=== PATIENT | male | born 1975 | race Caucasian/White ===

== ENCOUNTER 2021-02-11 23:04 | Emergency (ER) | payer OTHER ==
[2021-02-11] MEDS ORDERED: Ketorolac 30 MG/ML SDV ONE (23:35)
[2021-02-11] MEDS ORDERED: Ketorolac 30 MG/ML SDV IVPUSH ONE (23:38)
[2021-02-11] MEDS ORDERED: Sodium Chloride 0.9% 1,000 ML IV ONE (23:38)
[2021-02-11] MEDS ORDERED: Sodium Chloride 0.9% 10 ML Syringe FLUSH PRN (23:39)
[2021-02-11] MEDS ORDERED: HYDROmorphone 1 MG/ML Syringe IVPUSH ONE (23:49)
[2021-02-11 23:52] LABS: CHLORIDE,CL 109 mmol/L (98-107); SODIUM,NA 144 mmol/L (136-145)
--- NOTE | 2021-02-11 23:59 | EDM.PDOC ---
ED HPI GENERAL MEDICAL PROBLEM - General Chief Complaint: Abdominal Pain Stated Complaint: abdominal pain Time Seen by Provider: 02/11/21 23:30 Source of Information: Reports: Patient History Limitations: Reports: No Limitations - History of Present Illness INITIAL COMMENTS - FREE TEXT/NARRATIVE: Patient [facility] with ongoing intermittent left flank/abdominal pain. States pain has been intermittent for the last month that started in the left flank and is radiated around the left lower abdomen. He rates tonight's pain is about a 8 out of 10 states it is occasionally radiated into the groin. States it woke him up from sleep andrew and then he came to the ER. He states he has had kidney stones in the past last one was about 15 years ago and he had one episode where he had to have lithotripsy and another where he had to have stenting after having the stone broke up. He denies any nausea vomiting fever issues. He has no other complaints at this time Duration: Week(s): Quality: Reports: Burning, Stabbing, Throbbing Severity: Severe Improves with: Reports: Other (Time) Worsens with: Reports: None LLQ Pain Score (Numeric/FACES): 7 - Related Data Allergies Allergy/AdvReac Type Severity Reaction Status Date / Time No Known Allergies Allergy Verified 02/11/21 23:10 Home Meds: Home Meds Fenofibrate Nanocrystallized [Fenofibrate] 145 mg PO DAILY 02/12/21 [History] Omeprazole 20 mg PO DAILY 02/12/21 [History] Sertraline [Zoloft] 50 mg PO DAILY 02/12/21 [History] Social & Family History - Tobacco Use Tobacco Use Status *Q: Current Every Day Tobacco User Years of Tobacco use: 20 Packs/Tins Daily: 1 Second Hand Smoke Exposure: No - Caffeine Use Caffeine Use: Reports: Soda - Recreational Drug Use Recreational Drug Use: No ED ROS GENERAL - Review of Systems Review Of Systems: See Below Constitutional: Denies: Fever, Chills, Malaise, Weakness, Fatigue, Decreased Appetite HEENT: Reports: No Symptoms Respiratory: Reports: No Symptoms Cardiovascular: Reports: No Symptoms Endocrine: Reports: No Symptoms GI/Abdominal: Reports: Abdominal Pain. Denies: Nausea, Vomiting : Reports: Flank Pain. Denies: Discharge, Dysuria, Frequency, Urgency, Urinary Retention Musculoskeletal: Reports: No Symptoms, Back Pain Skin: Reports: No Symptoms Neurological: Reports: No Symptoms Psychiatric: Reports: No Symptoms Hematologic/Lymphatic: Reports: No Symptoms Immunologic: Reports: No Symptoms ED EXAM, RENAL/ - Physical Exam Exam: See Below Exam Limited By: No Limitations General Appearance: Alert, WD/WN, No Apparent Distress, Other (Patient appears to be in discomfort. Noted hypertension on vital signs) Eye Exam: Bilateral Eye: EOMI, Normal Inspection Throat/Mouth: Normal Inspection, Normal Lips, Normal Teeth, Normal Gums, Normal Oropharynx, Normal Voice, No Airway Compromise Neck: Normal Inspection, Supple, Non-Tender, Full Range of Motion Respiratory/Chest: No Respiratory Distress, Lungs Clear, Normal Breath Sounds, No Accessory Muscle Use, Chest Non-Tender Cardiovascular: Normal Peripheral Pulses, Regular Rate, Rhythm, No Edema, No Gallop, No JVD, No Murmur, No Rub GI/Abdominal: Normal Bowel Sounds, Soft, Non-Tender, No Organomegaly, No Distention, No Abnormal Bruit, No Mass Back Exam: Normal Inspection, Full Range of Motion. No: CVA Tenderness (L), CVA Tenderness (R) Extremities: Normal Inspection, Normal Range of Motion, Non-Tender, No Pedal Edema, Normal Capillary Refill Neurological: Alert, Oriented, CN II-XII Intact, Normal Cognition, Normal Gait, Normal Reflexes, No Motor/Sensory Deficits Psychiatric: Normal Affect, Normal Mood Skin Exam: Warm, Dry, Intact, Normal Color, No Rash Course - Vital Signs Text/Narrative:: Labs drawn CBC BMP urinalysis Toradol 30 mg IV no relief Dilaudid 1 mg IV with 1 bag normal saline bolus will CT abdomen pelvis stone protocol Patient was given second bag IV fluids along with 25 mg of Phenergan IM recheck pain was about a 2 out of 10 Radiology report reveals 7.6 mm stone at the left UVJ junction with mild hydronephrosis. Replaced By [facility] 1 call for transfer in regards to urological consult spoke with hospitalist Dr. JOHNSON who is willing accept transfer care of patient. At 11:12 AM. I discussed with him also that the patient wants to transfer via POV with his . I discussed with the patient in regards to transfer and he states he is still willing to go POV Last Recorded V/S: Last Vital Signs Temp 36.2 C 02/11/21 23:06 Pulse 74 02/11/21 23:06 Resp 20 02/11/21 23:06 BP 155/106 H 02/11/21 23:06 Pulse Ox 97 02/11/21 23:06 - Orders/Labs/Meds Orders: Active Orders 24 hr Category Date Time Status Abdomen wo Cont [CT] Stat Exams 02/12/21 00:04 Ordered Sodium Chloride 0.9% [Normal Saline] 1,000 ml Med 02/12/21 00:47 Active IV .BOLUS Sodium Chloride 0.9% [Saline Flush] Med 02/11/21 23:39 Active 10 ml FLUSH ASDIRECTED PRN Saline Lock Insert [OM.PC] Routine Oth 02/11/21 23:39 Ordered Medication Orders Sodium Chloride (Normal Saline) 1,000 mls @ 999 mls/hr IV .BOLUS ONE Stop: 02/12/21 01:47 Last Admin: 02/12/21 00:50 Dose: 999 mls/hr Documented by: Sodium Chloride (Sodium Chloride 0.9% 10 Ml Syringe) 10 ml FLUSH ASDIRECTED PRN PRN Reason: Keep Vein Open Labs: Laboratory Tests 02/11/21 02/11/21 02/12/21 Range/Units 23:25 23:25 00:15 WBC 12.1 H (4.0-10.2) K/uL RBC 5.33 (4.33-5.41) M/uL Hgb 16.7 (13.1-16.8) g/dL Hct 49.0 (39.0-49.0) % MCV 91.9 (84.0-98.0) fL MCH 31.3 (28.2-33.3) pg MCHC 34.1 (31.7-36.0) g/dL RDW 13.6 (11.2-14.1) % Plt Count 283 (150-350) K/uL Neut % (Auto) 42.0 L (45.0-80.0) % Lymph % (Auto) 42.1 (10.0-50.0) % [place] % (Auto) 9.9 (2.0-14.0) % Eos % (Auto) 5.6 H (0.0-5.0) % Baso % (Auto) 0.4 (0.0-2.0) % Neut # (Auto) 5.07 (1.40-7.00) K/uL Lymph # (Auto) 5.09 H (0.50-3.50) K/uL [place] # (Auto) 1.20 H (0.00-1.00) K/uL Eos # (Auto) 0.68 H (0.00-0.50) K/uL Baso # (Auto) 0.05 (0.00-0.20) K/uL Sodium 144 (136-145) mmol/L Potassium 4.2 (3.5-5.1) mmol/L Chloride 109 H (98-107) mmol/L Carbon Dioxide 26.4 (21.0-32.0) mmol/L BUN 17 (7-18) mg/dL Creatinine 1.28 H (0.51-1.17) mg/dL Est Cr Clr Drug Dosing 74.41 mL/min Estimated GFR (MDRD) > 60 mL/min Glucose 103 H (70-99) mg/dL Calcium 8.8 (8.5-10.1) mg/dL Specimen Type Urincc Urine Color Yellow (YELLOW) Urine Appearance Clear (CLEAR) Urine pH 6.5 (5.0-9.0) Ur Specific [place] 1.025 (1.005-1.030) Urine Protein Negative (NEGATIVE) mg/dL Urine Glucose (UA) Negative (NEGATIVE) mg/dL Urine Ketones Negative (NEGATIVE) mg/dL Urine Occult Blood Moderate H (NEGATIVE) Urine Nitrite Negative (NEGATIVE) Urine Bilirubin Negative (NEGATIVE) Urine Urobilinogen 0.2 (0.2-1.0) E.U./dL Ur Leukocyte Esterase Negative (NEGATIVE) Urine RBC 75-100 H /HPF Urine WBC 0-5 /HPF Ur Epithelial Cells Rare /LPF Urine Bacteria Rare (NONE TO FEW) /HPF Urine Mucus Few H (NEGATIVE) /LPF Meds: Medications Generic Name Dose Route Start Last Admin Trade Name Freq PRN Reason Stop Dose Admin Sodium Chloride 1,000 mls @ 999 mls/hr 02/12/21 00:47 02/12/21 00:50 Normal Saline IV 02/12/21 01:47 999 mls/hr .BOLUS ONE Administration Sodium Chloride 10 ml 02/11/21 23:39 Sodium Chloride 0.9% 10 Ml Syringe FLUSH ASDIRECTED PRN Keep Vein Open Discontinued Medications Generic Name Dose Route Start Last Admin Trade Name Frances PRN Reason Stop Dose Admin Hydromorphone HCl 1 mg 02/11/21 23:49 02/11/21 23:53 Hydromorphone 1 Mg/Ml Syringe IVPUSH 02/11/21 23:50 1 mg ONETIME ONE Administration Sodium Chloride 1,000 mls @ 999 mls/hr 02/11/21 23:38 02/11/21 23:45 Normal Saline IV 02/12/21 00:38 999 mls/hr .BOLUS ONE Administration Ketorolac Tromethamine Confirm 02/11/21 23:35 02/11/21 23:59 Ketorolac 30 Mg/Ml Sdv Administered 02/11/21 23:36 Not Given Dose 30 mg .ROUTE .STK-MED ONE Ketorolac Tromethamine 30 mg 02/11/21 23:38 02/11/21 23:44 Ketorolac 30 Mg/Ml Sdv IVPUSH 02/11/21 23:39 30 mg ONETIME ONE Administration Promethazine HCl 25 mg 02/12/21 00:21 02/12/21 00:25 Promethazine 25 Mg/Ml Sdv IM 02/12/21 00:22 25 mg ONETIME ONE Administration Departure - Departure Time of Disposition: 01:10 Disposition: DC/Tfer to Acute Hospital 02 Condition: Good Clinical Impression: Acute left flank pain, Left nephrolithiasis, Hydronephrosis - Discharge Information *PRESCRIPTION DRUG MONITORING PROGRAM REVIEWED*: No *COPY OF PRESCRIPTION DRUG MONITORING REPORT IN PATIENT NAHID: No Referrals: Imelda Hsu PA-C [Primary Care Provider] - Forms: ED Department Discharge Sepsis Event Note (ED) - Evaluation Sepsis Screening Result: No Definite Risk - Focused Exam Vital Signs: Vital Signs Temp Pulse Resp BP Pulse Ox 02/11/21 23:06 36.2 C 74 20 155/106 H 97 - Problem List & Annotations (1) Acute left flank pain SNOMED Code(s): 803077690, 944042058 Code(s): R10.9 - UNSPECIFIED ABDOMINAL PAIN Status: Acute Current Visit: Yes (2) Hydronephrosis SNOMED Code(s): 73334154 Code(s): N13.30 - UNSPECIFIED HYDRONEPHROSIS Status: Acute Current Visit: Yes (3) Left nephrolithiasis SNOMED Code(s): 74124815 Code(s): N20.0 - CALCULUS OF KIDNEY Status: Acute Current Visit: Yes - My Orders Last 24 Hours: My Active Orders 02/11/21 23:39 Sodium Chloride 0.9% [Saline Flush] 10 ml FLUSH ASDIRECTED PRN Saline Lock Insert [OM.PC] Routine 02/12/21 00:04 Abdomen wo Cont [CT] Stat 02/12/21 00:47 Sodium Chloride 0.9% [Normal Saline] 1,000 ml IV .BOLUS - Assessment/Plan Last 24 Hours: My Active Orders 02/11/21 23:39 Sodium Chloride 0.9% [Saline Flush] 10 ml FLUSH ASDIRECTED PRN Saline Lock Insert [OM.PC] Routine 02/12/21 00:04 Abdomen wo Cont [CT] Stat 02/12/21 00:47 Sodium Chloride 0.9% [Normal Saline] 1,000 ml IV .BOLUS
[2021-02-12] MEDS ORDERED: Promethazine 25 MG/ML SDV IM ONE (00:21)
[2021-02-12] MEDS ORDERED: Sodium Chloride 0.9% 1,000 ML IV ONE (00:47)
[2021-02-12 01:30] VITALS: BP 143/91; PULSE 70
== END 2021-02-12 01:43 ==
LOC: LL.ED 23:04
DX: N13.2 Hydronephrosis with renal and ureteral calculous obstruction (principal); Z79.899 Other long term (current) drug therapy; Z72.0 Tobacco use
CPT/HCPCS: 36415; 74150; 80048; 81001; 85025; 96372; 96374; 96375; 99284; 99285-25; J1170; J1885; J2550; J7030

== ENCOUNTER 2021-02-19 21:28 | Emergency (ER) | payer OTHER ==
[2021-02-19] MEDS ORDERED: Sodium Chloride 0.9% 10 ML Syringe FLUSH PRN (21:42)
--- NOTE | 2021-02-19 21:45 | EDM.PDOC ---
ED HPI GENERAL MEDICAL PROBLEM - General Chief Complaint: Genitourinary Problem Stated Complaint: lower back/left side pain Time Seen by Provider: 02/19/21 21:40 Source of Information: Reports: Patient History Limitations: Reports: No Limitations - History of Present Illness INITIAL COMMENTS - FREE TEXT/NARRATIVE: Patient presents to the Ed with left flank pain. He was diagnosed with a 7 mm stone about a week or so ago. He went to see urology in [place], they placed a stent and he is scheduled in on for lithotripsy. This is his third stone, second one that he has to have lithotripsy for. He was not sent home with pain medication. He has been struggling with pain, but today the pain became significantly worse. No fevers or chills, normal bowel movements. Has b een having intermittant hematuria with this. Duration: Getting Worse Location: Reports: Other (left flank to left abdomen) Quality: Reports: Stabbing Severity: Severe Improves with: Reports: None Worsens with: Reports: None Associated Symptoms: Reports: Other (hematuria) Left Abdomen Pain Score (Numeric/FACES): 8 - Related Data Allergies Allergy/AdvReac Type Severity Reaction Status Date / Time No Known Allergies Allergy Verified 02/19/21 21:32 Home Meds: Home Meds Fenofibrate Nanocrystallized [Fenofibrate] 145 mg PO DAILY 02/12/21 [History] Omeprazole 20 mg PO DAILY 02/12/21 [History] Sertraline [Zoloft] 50 mg PO DAILY 02/12/21 [History] Hydrocodone/Acetaminophen [HYDROcodone-Acetaminophen 5-325 MG] 1 each PO Q6HR PRN #25 tab 02/19/21 [Rx] Ondansetron [Zofran ODT] 4 mg PO Q8HR PRN #15 tab.dis 02/19/21 [Rx] Past Medical History Cardiovascular History: Reports: High Cholesterol Gastrointestinal History: Reports: GERD Genitourinary History: Reports: Renal Calculus Psychiatric History: Reports: Depression Endocrine/Metabolic History: Reports: Obesity/BMI 30+, Other (See Below) Other Endocrine/Metabolic History: 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 Denies: Fever, Chills, Malaise HEENT: Reports: No Symptoms. Denies: Ear Discharge, Sinus Problem, Throat Swelling Respiratory: Reports: No Symptoms. Denies: Shortness of Breath, Cough Cardiovascular: Reports: No Symptoms. Denies: Chest Pain, Dyspnea on Exertion Endocrine: Reports: No Symptoms GI/Abdominal: Reports: No Symptoms. Denies: Black Stool, Bloody Stool, Constipation, Diarrhea, Decreased Appetite, Nausea, Vomiting : Reports: Flank Pain, Hematuria Musculoskeletal: Reports: No Symptoms. Denies: Neck Pain, Shoulder Pain, Back Pain Skin: Reports: No Symptoms Neurological: Reports: No Symptoms. Denies: Confusion, Pre-Existing Deficit, Seizure, Trouble Speaking ED EXAM, RENAL/ - Physical Exam Exam: See Below Exam Limited By: No Limitations General Appearance: Alert, WD/WN, Mild Distress Eye Exam: Bilateral Eye: EOMI, Normal Inspection, PERRL Ears: Normal External Exam Nose: Normal Inspection, Normal Mucosa Throat/Mouth: Normal Inspection, Normal Lips, Normal Voice Head: Atraumatic, Normocephalic Neck: Normal Inspection, Supple, Non-Tender, Full Range of Motion Respiratory/Chest: No Respiratory Distress, Lungs Clear, Normal Breath Sounds, No Accessory Muscle Use, Chest Non-Tender Cardiovascular: Normal Peripheral Pulses, Regular Rate, Rhythm, No Murmur, No Rub GI/Abdominal: Normal Bowel Sounds, Soft, Tender (left lower abdomen along the ureter distribution) (Male) Exam: Deferred Rectal (Males) Exam: Deferred Back Exam: CVA Tenderness (L). No: CVA Tenderness (R), Decreased Range of Motion, Muscle Spasm Extremities: Normal Inspection, Normal Range of Motion, Normal Capillary Refill Neurological: Alert, Oriented, CN II-XII Intact, Normal Cognition, No Motor/Sensory Deficits Course - Vital Signs Last Recorded V/S: Last Vital Signs Temp 36.9 C 02/19/21 21:34 Pulse 81 02/19/21 21:34 Resp 18 02/19/21 21:34 BP 159/94 H 02/19/21 21:34 Pulse Ox 97 02/19/21 21:34 - Orders/Labs/Meds Orders: Active Orders 24 hr Category Date Time Status Peripheral IV Care [RC] . DIRECTED Care 02/19/21 21:43 Active CULTURE URINE [RM] Stat Lab 02/19/21 22:30 Received Sodium Chloride 0.9% [Saline Flush] Med 02/19/21 21:42 Active 10 ml FLUSH ASDIRECTED PRN Peripheral IV Insertion Adult [OM.PC] Routine Oth 02/19/21 21:42 Ordered Medication Orders Sodium Chloride (Sodium Chloride 0.9% 10 Ml Syringe) 10 ml FLUSH ASDIRECTED PRN PRN Reason: Keep Vein Open Labs: Laboratory Tests 02/19/21 02/19/21 02/19/21 Range/Units 21:55 21:55 21:55 WBC 12.5 H (4.0-10.2) K/uL RBC 5.11 (4.33-5.41) M/uL Hgb 16.2 (13.1-16.8) g/dL Hct 47.0 (39.0-49.0) % MCV 92.0 (84.0-98.0) fL MCH 31.7 (28.2-33.3) pg MCHC 34.5 (31.7-36.0) g/dL RDW 13.4 (11.2-14.1) % Plt Count 249 (150-350) K/uL Neut % (Auto) 56.2 (45.0-80.0) % Lymph % (Auto) 29.7 (10.0-50.0) % [place] % (Auto) 9.4 (2.0-14.0) % Eos % (Auto) 4.4 (0.0-5.0) % Baso % (Auto) 0.3 (0.0-2.0) % Neut # (Auto) 7.01 H (1.40-7.00) K/uL Lymph # (Auto) 3.71 H (0.50-3.50) K/uL [place] # (Auto) 1.17 H (0.00-1.00) K/uL Eos # (Auto) 0.55 H (0.00-0.50) K/uL Baso # (Auto) 0.04 (0.00-0.20) K/uL Sodium 140 (136-145) mmol/L Potassium 3.8 (3.5-5.1) mmol/L Chloride 108 H (98-107) mmol/L Carbon Dioxide 24.7 (21.0-32.0) mmol/L Anion Gap 11.1 (7-15) meq/L BUN 15 (7-18) mg/dL Creatinine 1.31 H (0.51-1.17) mg/dL Est Cr Clr Drug Dosing TNP Estimated GFR (MDRD) 60 mL/min Glucose 139 H (70-99) mg/dL Lactic Acid 1.0 (0.4-2.0) mmol/L Calcium 8.7 (8.5-10.1) mg/dL Total Bilirubin 0.5 (0.2-1.0) mg/dL AST 11 L (15-37) U/L ALT 29 (12-78) U/L Alkaline Phosphatase 45 L (46-116) IU/L C-Reactive Protein < 0.2 (<=0.9) mg/dL Total Protein 6.9 (6.4-8.2) g/dL Albumin 3.7 (3.4-5.0) g/dL Specimen Type Urine Color Urine Appearance Urine pH (5.0-9.0) Ur Specific [place] (1.005-1.030) Urine Protein (NEGATIVE) mg/dL Urine Glucose (UA) (NEGATIVE) mg/dL Urine Ketones (NEGATIVE) mg/dL Urine Occult Blood (NEGATIVE) Urine Nitrite (NEGATIVE) Urine Bilirubin (NEGATIVE) Urine Urobilinogen (0.2-1.0) E.U./dL Ur Leukocyte Esterase (NEGATIVE) Urine RBC /HPF Urine WBC /HPF Ur Epithelial Cells /LPF Urine Bacteria (NONE TO FEW) /HPF 02/19/21 Range/Units 22:30 WBC (4.0-10.2) K/uL RBC (4.33-5.41) M/uL Hgb (13.1-16.8) g/dL Hct (39.0-49.0) % MCV (84.0-98.0) fL MCH (28.2-33.3) pg MCHC (31.7-36.0) g/dL RDW (11.2-14.1) % Plt Count (150-350) K/uL Neut % (Auto) (45.0-80.0) % Lymph % (Auto) (10.0-50.0) % [place] % (Auto) (2.0-14.0) % Eos % (Auto) (0.0-5.0) % Baso % (Auto) (0.0-2.0) % Neut # (Auto) (1.40-7.00) K/uL Lymph # (Auto) (0.50-3.50) K/uL [place] # (Auto) (0.00-1.00) K/uL Eos # (Auto) (0.00-0.50) K/uL Baso # (Auto) (0.00-0.20) K/uL Sodium (136-145) mmol/L Potassium (3.5-5.1) mmol/L Chloride (98-107) mmol/L Carbon Dioxide (21.0-32.0) mmol/L Anion Gap (7-15) meq/L BUN (7-18) mg/dL Creatinine (0.51-1.17) mg/dL Est Cr Clr Drug Dosing Estimated GFR (MDRD) mL/min Glucose (70-99) mg/dL Lactic Acid (0.4-2.0) mmol/L Calcium (8.5-10.1) mg/dL Total Bilirubin (0.2-1.0) mg/dL AST (15-37) U/L ALT (12-78) U/L Alkaline Phosphatase (46-116) IU/L C-Reactive Protein (<=0.9) mg/dL Total Protein (6.4-8.2) g/dL Albumin (3.4-5.0) g/dL Specimen Type Urincc Urine Color Dark yellow Urine Appearance Slightly cloudy Urine pH 7.0 (5.0-9.0) Ur Specific [place] 1.020 (1.005-1.030) Urine Protein 100 H (NEGATIVE) mg/dL Urine Glucose (UA) Negative (NEGATIVE) mg/dL Urine Ketones Negative (NEGATIVE) mg/dL Urine Occult Blood Large H (NEGATIVE) Urine Nitrite Negative (NEGATIVE) Urine Bilirubin Negative (NEGATIVE) Urine Urobilinogen 0.2 (0.2-1.0) E.U./dL Ur Leukocyte Esterase Trace H (NEGATIVE) Urine RBC >100 H /HPF Urine WBC 0-5 /HPF Ur Epithelial Cells Not seen /LPF Urine Bacteria Rare (NONE TO FEW) /HPF Meds: Medications Generic Name Dose Route Start Last Admin Trade Name Frances PRN Reason Stop Dose Admin Sodium Chloride 10 ml 02/19/21 21:42 Sodium Chloride 0.9% 10 Ml Syringe FLUSH ASDIRECTED PRN Keep Vein Open Discontinued Medications Generic Name Dose Route Start Last Admin Trade Name Frejw PRN Reason Stop Dose Admin Hydrocodone Bitart/Acetaminophen 1 tab 02/19/21 22:48 Acetaminophen/Hydrocodone 325-5 Mg Tab PO 02/19/21 22:49 ONETIME ONE Hydromorphone HCl 1 mg 02/19/21 21:42 02/19/21 21:54 Hydromorphone 1 Mg/Ml Syringe IVPUSH 02/19/21 21:43 1 mg ONETIME ONE Administration Sodium Chloride 1,000 mls @ 1,000 mls/hr 02/19/21 21:42 02/19/21 21:53 Normal Saline IV 02/19/21 22:41 1,000 mls/hr .BOLUS ONE Administration Ondansetron HCl 4 mg 02/19/21 21:42 02/19/21 22:50 Ondansetron 4 Mg/2 Ml Sdv IVPUSH 02/19/21 21:43 4 mg ONETIME ONE Administration - Re-Assessments/Exams Free Text/Narrative Re-Assessment/Exam: 02/19/21 22:12 Will start an iv, give fluids, pain medication and zofran. Needs to be sent home with pain medication. Has follow up . Will check labs and urine. 02/19/21 22:56 Discussed normal results with patient. Urine culture pending. Slight leukocytosis due to pain negative CRP and lactic/ advised to use pain medication and follow up with urology. use stool softener to prevent constipation. Departure - Departure Time of Disposition: 22:52 Disposition: Home, Self-Care 01 Clinical Impression: Kidney stone - Discharge Information *PRESCRIPTION DRUG MONITORING PROGRAM REVIEWED*: Not Applicable *COPY OF PRESCRIPTION DRUG MONITORING REPORT IN PATIENT NAHID: Not Applicable Prescriptions: Hydrocodone/Acetaminophen [HYDROcodone-Acetaminophen 5-325 MG] 1 each PO Q6HR PRN #25 tab PRN Reason: Abdominal Pain Ondansetron [Zofran ODT] 4 mg PO Q8HR PRN #15 tab.dis PRN Reason: Nausea Instructions: Renal Colic, [id number], Low-Purine Eating Plan, Pain Medicine Instructions, [id number], Dietary Guidelines to Help Prevent Kidney Stones, Laser Therapy for Kidney Stones Referrals: Imelda Hsu PA-C [Primary Care Provider] - Forms: ED Department Discharge Additional Instructions: Take the hydrocodone for pain every 6 hours as needed. Use tylenol for minimal pain. Use the zofran every 8 hours as needed for nausea. These medications as constipating. Take a stool softener to prevent this. You were given dilaudid and hydrocodone in the ED. Fill prescriptions tomorrow. Hydrate well. REturn for fever or uncontrollable pain. Otherwise follow up with urology as scheduled Sepsis Event Note (ED) - Evaluation Sepsis Screening Result: No Definite Risk - Focused Exam Vital Signs: Vital Signs Temp Pulse Resp BP Pulse Ox 02/19/21 21:34 36.9 C 81 18 159/94 H 97 - My Orders Last 24 Hours: My Active Orders 02/19/21 21:42 Sodium Chloride 0.9% [Saline Flush] 10 ml FLUSH ASDIRECTED PRN Peripheral IV Insertion Adult [OM.PC] Routine 02/19/21 21:43 Peripheral IV Care [RC] . DIRECTED 02/19/21 22:30 CULTURE URINE [RM] Stat - Assessment/Plan Last 24 Hours: My Active Orders 02/19/21 21:42 Sodium Chloride 0.9% [Saline Flush] 10 ml FLUSH ASDIRECTED PRN Peripheral IV Insertion Adult [OM.PC] Routine 02/19/21 21:43 Peripheral IV Care [RC] . DIRECTED 02/19/21 22:30 CULTURE URINE [RM] Stat
[2021-02-19] MEDS: Sodium Chloride 0.9% 1,000 ML IV ONE (21:53)
[2021-02-19] MEDS: HYDROmorphone 1 MG/ML Syringe IVPUSH ONE (21:54)
[2021-02-19 22:20] LABS: CHLORIDE,CL 108 mmol/L (98-107); SODIUM,NA 140 mmol/L (136-145)
[2021-02-19 22:21] LABS: ANION GAP 11.1 meq/L (7-15)
[2021-02-19] MEDS: Ondansetron 4 MG/2 ML SDV IVPUSH ONE (22:50)
[2021-02-19] MEDS: Acetaminophen/HYDROcodone 325-5 MG Tab PO ONE (22:52)
== END 2021-02-19 23:13 | disposition home or self-care (01) ==
LOC: LL.ED 21:28
DX: N20.0 Calculus of kidney (principal); K21.9 Gastro-esophageal reflux disease without esophagitis; E66.9 Obesity, unspecified; Z79.899 Other long term (current) drug therapy; Z68.30 Body mass index [BMI] 30.0-30.9, adult
CPT/HCPCS: 36415; 80053; 81001; 83605; 85025; 86140; 87086; 96374; 96375; 99284; 99284-25; A9270-GY; J1170; J2405; J7030

== ENCOUNTER 2023-07-01 23:12 | Observation (INO) | payer BC, OTHER ==
[2023-07-01] MEDS ORDERED: Ketorolac 30 MG/ML SDV IVPUSH ONE (23:17)
[2023-07-01] MEDS ORDERED: Ondansetron 4 MG/2 ML SDV IVPUSH ONE (23:18)
[2023-07-01] MEDS ORDERED: Tamsulosin 0.4 MG Cap.ER PO ONE (23:18)
[2023-07-01] MEDS ORDERED: Naloxone 0.4 MG/ML SDV IVPUSH PRN (23:18)
[2023-07-01] MEDS ORDERED: Morphine 2 MG/ML SYRINGE IVPUSH PRN (23:18)
[2023-07-01] MEDS ORDERED: Sodium Chloride 0.9% 1,000 ML IV ONE (23:19)
[2023-07-01] MEDS ORDERED: Sodium Chloride 0.9% 10 ML Syringe FLUSH PRN (23:19)
[2023-07-01] MEDS ORDERED: Ketorolac 30 MG/ML SDV ONE (23:21)
[2023-07-01 23:33] LABS: BASOPHILS ABSOLUTE AUTO 0.07 K/uL (0.00-0.20); BASOPHILS PERCENT AUTO 0.5 % (0.0-2.0); HEMATOCRIT 49.7 % (39.0-49.0); HEMOGLOBIN 17.3 g/dL (13.1-16.8); LYMPHOCYTES ABSOLUTE AUTO 4.97 K/uL (0.50-3.50); LYMPHOCYTES PERCENT AUTO 37.5 % (10.0-50.0); MEAN CORPUSCULAR HEMOGLOBIN 31.6 pg (28.2-33.3); MEAN CORPUSCULAR HGB CONC 34.8 g/dL (31.7-36.0); MEAN CORPUSCULAR VOLUME 90.7 fL (84.0-98.0); MONOCYTES PERCENT AUTO 12.8 % (2.0-14.0); NEUTROPHILS ABSOLUTE AUTO 5.72 K/uL (1.40-7.00); NEUTROPHILS PERCENT AUTO 43.2 % (45.0-80.0); PLATELET COUNT,PLT 303 K/uL (150-350); RED BLOOD CELL COUNT 5.48 M/uL (4.33-5.41); RED CELL DISTRIBUTION WIDTH 13.3 % (11.2-14.1); WHITE BLOOD CELL COUNT,WBC 13.3 K/uL (4.0-10.2)
[2023-07-01 23:48] LABS: APPEARANCE,URINE SLIGHTLY CLOUDY; BILIRUBIN,URINE NEGATIVE (NEGATIVE); COLOR,URINE YELLOW; GLUCOSE,URINE NEGATIVE (NEGATIVE); KETONES,URINE NEGATIVE (NEGATIVE); LEUKOCYTE ESTERASE,URINE NEGATIVE (NEGATIVE); NITRITE,URINE NEGATIVE (NEGATIVE); OCCULT BLOOD,URINE MODERATE (NEGATIVE); PROTEIN,URINE NEGATIVE (NEGATIVE); UROBILINOGEN,URINE 0.2 E.U./dL (0.2-1.0)
[2023-07-01 23:49] LABS: ALANINE AMINOTRANSFERASE,ALT 41 U/L (12-78); ALBUMIN 3.8 g/dL (3.4-5.0); ALKALINE PHOSPHATASE 59 IU/L (46-116); ANION GAP 12.7 meq/L (7-15); ASPARTATE AMNIOTRANSFERASE,AST 23 U/L (15-37); BILIRUBIN TOTAL 0.7 mg/dL (0.2-1.0); BLOOD UREA NITROGEN,BUN 14 mg/dL (7-18); CALCIUM 8.8 mg/dL (8.5-10.1); CARBON DIOXIDE,CO2 24.3 mmol/L (21.0-32.0); CHLORIDE,CL 105 mmol/L (98-107); CREATININE 1.25 mg/dL (0.51-1.17); GLUCOSE RANDOM 119 mg/dL (70-99); POTASSIUM,K 3.9 mmol/L (3.5-5.1); PROTEIN TOTAL,TP 6.8 g/dL (6.4-8.2); SODIUM,NA 142 mmol/L (136-145)
[2023-07-01 23:50] LABS: ESTIMATED GFR 72 mL/min (>=60)
[2023-07-01 23:56] LABS: BACTERIA,URINE FEW /HPF (NONE TO FEW); EPITHELIAL CELLS,URINE RARE /LPF; MUCUS,URINE FEW /LPF (NEGATIVE); WBC,URINE 0-5 /HPF
[2023-07-02] MEDS ORDERED: HYDROmorphone 1 MG/ML Syringe IVPUSH ONE (00:30)
[2023-07-02] MEDS ORDERED: Sodium Chloride 0.9% 1,000 ML IV ONE ×2 (00:31→04:00)
[2023-07-02] MEDS ORDERED: Acetaminophen 325 MG Tab PO PRN (01:15)
[2023-07-02] MEDS ORDERED: Ketorolac 15 MG/ML SDV IVPUSH PRN (01:19)
[2023-07-02] MEDS ORDERED: Ondansetron 4 MG/2 ML SDV IVPUSH PRN (01:19)
[2023-07-02] MEDS ORDERED: HYDROmorphone 1 MG/ML Syringe IVPUSH PRN (01:20)
[2023-07-02] MEDS: Nicotine 21 MG/24 Hr Patch TRDERM SCH ×2 (01:41→07:56)
[2023-07-02] MEDS ORDERED: Sertraline 50 MG Tab PO SCH (08:00)
[2023-07-02] MEDS ORDERED: Pantoprazole 40 MG Vial IVPUSH SCH (08:00)
== END 2023-07-02 12:30 | disposition home or self-care (01) ==
LOC: LL.ED 23:12 → LL.MS 07-02 00:50
PROVIDERS: ADMIT Emergency Medicine; ATTEND Physician Assistant
DX: N13.2 Hydronephrosis with renal and ureteral calculous obstruction (principal); I10 Essential (primary) hypertension; K21.9 Gastro-esophageal reflux disease without esophagitis; E78.00 Pure hypercholesterolemia, unspecified; F32.A Depression, unspecified; E66.9 Obesity, unspecified; Z68.42 Body mass index [BMI] 45.0-49.9, adult; F17.210 Nicotine dependence, cigarettes, uncomplicated; Z79.899 Other long term (current) drug therapy
CPT/HCPCS: 36415; 74176; 80053; 81001; 85025; 94761; 96361; 96374; 96375; 99285; A9270; C9113; G0378; J1170; J1885; J2270; J2405; J7030; J3490

== ENCOUNTER 2024-04-30 23:18 | Emergency (ER) | payer BC, OTHER ==
[2024-04-30] MEDS ORDERED: Naloxone 0.4 MG/ML SDV IVPUSH PRN (23:22)
[2024-04-30] MEDS ORDERED: Sodium Chloride 0.9% 10 ML Syringe FLUSH PRN (23:22)
[2024-04-30] MEDS: Ondansetron 4 MG/2 ML SDV IVPUSH PRN (23:31)
[2024-04-30] MEDS: fentaNYL 50 MCG/ML SDV IVPUSH ONE (23:31)
[2024-04-30 23:36] LABS: BASOPHILS ABSOLUTE AUTO 0.07 K/uL (0.00-0.20); BASOPHILS PERCENT AUTO 0.7 % (0.0-2.0); EOSINOPHILS ABSOLUTE AUTO 0.58 K/uL (0.00-0.50); EOSINOPHILS PERCENT AUTO 5.4 % (0.0-5.0); HEMATOCRIT 50.1 % (39.0-49.0); HEMOGLOBIN 16.9 g/dL (13.1-16.8); LYMPHOCYTES ABSOLUTE AUTO 3.98 K/uL (0.50-3.50); LYMPHOCYTES PERCENT AUTO 37.4 % (10.0-50.0); MEAN CORPUSCULAR HEMOGLOBIN 31.1 pg (28.2-33.3); MEAN CORPUSCULAR HGB CONC 33.7 g/dL (31.7-36.0); MEAN CORPUSCULAR VOLUME 92.1 fL (84.0-98.0); MONOCYTES ABSOLUTE AUTO 1.12 K/uL (0.00-1.00); MONOCYTES PERCENT AUTO 10.5 % (2.0-14.0); PLATELET COUNT,PLT 250 K/uL (150-350); RED BLOOD CELL COUNT 5.44 M/uL (4.33-5.41); RED CELL DISTRIBUTION WIDTH 13.7 % (11.2-14.1); WHITE BLOOD CELL COUNT,WBC 10.7 K/uL (4.0-10.2)
[2024-04-30 23:53] LABS: APPEARANCE,URINE CLEAR; BILIRUBIN,URINE NEGATIVE (NEGATIVE); COLOR,URINE YELLOW; GLUCOSE,URINE NEGATIVE (NEGATIVE); KETONES,URINE NEGATIVE (NEGATIVE); LEUKOCYTE ESTERASE,URINE NEGATIVE (NEGATIVE); NITRITE,URINE NEGATIVE (NEGATIVE); OCCULT BLOOD,URINE MODERATE (NEGATIVE); PH,URINE 6.5 (5.0-9.0); PROTEIN,URINE TRACE mg/dL (NEGATIVE); UROBILINOGEN,URINE 0.2 E.U./dL (0.2-1.0)
[2024-04-30 23:56] LABS: INR 1.1 (0.9-1.1); PROTHROMBIN TIME 10.8 SEC (9.0-11.1)
[2024-04-30 23:59] LABS: ALBUMIN 3.7 g/dL (3.4-5.0); ANION GAP 8.5 meq/L (7-15); BILIRUBIN TOTAL 0.3 mg/dL (0.2-1.0); CALCIUM 9.3 mg/dL (8.5-10.1); CARBON DIOXIDE,CO2 28.5 mmol/L (21.0-32.0); CREATININE 1.42 mg/dL (0.51-1.17); EST CRCL DRUG DOSING (CG) 62.89 mL/min; POTASSIUM,K 3.9 mmol/L (3.5-5.1); PROTEIN TOTAL,TP 7.1 g/dL (6.4-8.2)
[2024-05-01 00:02] LABS: AMORPHOUS SEDIMENT,URINE FEW /HPF (0/HPF); BACTERIA,URINE NOT SEEN /HPF (NONE TO FEW); EPITHELIAL CELLS,URINE FEW /LPF; MUCUS,URINE MODERATE /LPF (NEGATIVE); RBC,URINE 0-5 /HPF; WBC,URINE 0-5 /HPF
[2024-05-01] MEDS: Ketorolac 15 MG/ML SDV IVPUSH ONE (00:57)
[2024-05-01] MEDS: Take Home: Ketorolac 10 MG Tab, 4 Tab Pack PO ONE (01:01)
[2024-05-01] MEDS: Take Home: Tamsulosin HCl 0.4 MG, 6 Cap Pack PO ONE (01:01)
== END 2024-05-01 01:05 | disposition home or self-care (01) ==
LOC: LL.ED 23:18
DX: N13.2 Hydronephrosis with renal and ureteral calculous obstruction (principal); E78.00 Pure hypercholesterolemia, unspecified; K21.9 Gastro-esophageal reflux disease without esophagitis; E66.9 Obesity, unspecified; Z79.899 Other long term (current) drug therapy; Z68.42 Body mass index [BMI] 45.0-49.9, adult
CPT/HCPCS: 36415; 74176; 80053; 81001; 85025; 85610; 96374; 96375; 99284; 99284-25; A9270-GY; J1885; J2405; J3010